=== PATIENT | male | born 1980 | race Caucasian/White ===

== ENCOUNTER 2020-01-02 15:14 | Emergency (ER) | payer MEDICAID ==
[~2020-01-02] VITALS: Ht 167.6 cm; Wt 68.2 kg
[2020-01-02] MEDS ORDERED: normal saline 1000ML IV soln IVB ONE (15:25)
[2020-01-02 16:03] LABS: BASOPHILS % (AUTO) 0.3 % (0-1); EOSINOPHILS % (AUTO) 0.6 % (0-6); HEMATOCRIT 43.5 % (42.0-52.0); HEMOGLOBIN 14.7 g/dl (14.0-17.9); LYMPHOCYTES # (AUTO) 1.7 X10'3 (1.1-4.8); MEAN CORPUSCULAR HEMOGLOBIN 29.4 PG (27.0-31.0); MEAN CORPUSCULAR HGB CONC 33.8 g/dL (33.0-36.5); MEAN CORPUSCULAR VOLUME 86.8 FL (78-98); MEAN PLATELET VOLUME 7.5 FL (7.4-10.4); MONOCYTES # (AUTO) 0.5 X10'3 (0-0.9); MONOCYTES % (AUTO) 6.1 % (2-12); NEUTROPHILS # (AUTO) 6.6 X10'3 (1.8-7.7); PLATELET COUNT 250 X10'3 (140-440); RED BLOOD COUNT 5.01 X10'6 (4.70-6.10); RED CELL DISTRIBUTION WIDTH 14.7 % (11.5-14.5); WHITE BLOOD COUNT 8.9 X10'3 (4.5-11.0)
[2020-01-02 16:16] LABS: PARTIAL THROMBOPLASTIN TIME 26 SECONDS (22-32)
[2020-01-02 16:19] LABS: ALANINE AMINOTRANSFERASE 25 U/L (12-78); ALBUMIN 3.7 G/DL (3.4-5.0); ALBUMIN/GLOBULIN RATIO 1.2 (1.1-1.5); ALKALINE PHOSPHATASE 62 IU/L (46-116); ANION GAP 12 (8-16); ASPARTATE AMINO TRANSFERASE 18 U/L (10-37); BILIRUBIN,TOTAL 0.4 MG/DL (0.1-1.0); BLOOD UREA NITROGEN 9 MG/DL (7-18); BUN/CREATININE RATIO 9.4 (5.4-32.0); CALCIUM 8.3 MG/DL (8.5-10.1); CHLORIDE 106 MMOL/L (99-107); CREATININE 0.96 MG/DL (0.60-1.10); GLUCOSE 100 MG/DL (70-104); POTASSIUM 3.9 MMOL/L (3.5-5.1); SODIUM 141 MMOL/L (135-145); TOTAL CARBON DIOXIDE 22.9 MMOL/L (24-32); TOTAL PROTEIN 6.7 G/DL (6.4-8.2); eGFR 87 ML/MIN
[2020-01-02 16:25] LABS: AMMONIA < 10 UMOL/L (11-32)
[2020-01-02 16:29] LABS: CREATINE KINASE 149 U/L (39-308); ETHANOL < 0.010 GM/DL (0.0-0.010); LACTIC SEPSIS 5.1 MMOL/L (0.4-2.0)
[2020-01-02] MEDS ORDERED: normal saline 1000ml 1,000 ML IV ONE (16:35)
[2020-01-02 17:08] LABS: CLARITY,URINE CLEAR (Clear); COLOR,URINE STRAW (Yellow); GLUCOSE, URINE NEGATIVE (Neg); KETONES,URINE NEGATIVE (Neg); LEUKOCYTE ESTERASE ,URINE NEGATIVE (Neg); NITRITES, URINE NEGATIVE (Neg); OCCULT BLOOD,URINE NEGATIVE (Neg); PH,URINE 5.5 (4.8-8.0); PROTEIN,URINE NEGATIVE (Neg); UROBILINOGEN,URINE 0.2 E.U/dL (0.2-1.0)
[2020-01-02 17:16] LABS: UA COLLECTION TYPE CLN CATCH MIDSTREAM
[2020-01-02 17:18] LABS: URINE AMPHETAMINE SCREEN NEGATIVE (Neg); URINE BARBITUATE SCREEN NEGATIVE (Neg); URINE BENZODIAZEPINES SCREEN NEGATIVE (Neg); URINE CANNABINOID SCREEN NEGATIVE (Neg); URINE COCAINE SCREEN NEGATIVE (Neg); URINE METHADONE SCREEN NEGATIVE (Neg); URINE OPIATE SCREEN NEGATIVE (Neg); URINE PHENCYCLIDINE SCREEN NEGATIVE (Neg)
[2020-01-02 18:54] VITALS: BP 105/63
== END 2020-01-02 18:50 | disposition home or self-care (01) ==
LOC: ER 15:15
DX: E86.0 Dehydration (principal); F32.9 Major depressive disorder, single episode, unspecified; R74.0 Nonspecific elevation of levels of transaminase and lactic acid dehydrogenase [LDH]; Z59.0 Homelessness
CPT/HCPCS: 36415; 70450; 71045; 80053; 80305; 80320; 81003; 82140; 82550; 83605; 84443; 85025; 85610; 85730; 93005; 96360; 96361; 99285; J7030

== ENCOUNTER 2021-10-16 11:29 | Emergency (ER) | payer MEDICAID ==
[~2021-10-16] VITALS: Ht 167.6 cm; Wt 65.9 kg
[2021-10-16 12:22] LABS: BASOPHILS % (AUTO) 0.6 % (0-1); EOSINOPHILS # (AUTO) 0.1 X10'3 (0-0.9); EOSINOPHILS % (AUTO) 1.1 % (0-6); HEMATOCRIT 45.7 % (42.0-52.0); HEMOGLOBIN 15.6 g/dl (14.0-17.9); LYMPHOCYTES # (AUTO) 2.2 X10'3 (1.1-4.8); LYMPHOCYTES % (AUTO) 32.3 % (21-51); MEAN CORPUSCULAR HEMOGLOBIN 29.4 PG (27.0-31.0); MEAN CORPUSCULAR HGB CONC 34.1 g/dL (33.0-36.5); MEAN CORPUSCULAR VOLUME 86.2 FL (78-98); MEAN PLATELET VOLUME 7.7 FL (7.4-10.4); MONOCYTES # (AUTO) 0.6 X10'3 (0-0.9); MONOCYTES % (AUTO) 8.2 % (2-12); NEUTROPHILS # (AUTO) 3.9 X10'3 (1.8-7.7); NEUTROPHILS % (AUTO) 57.8 % (42-75); PLATELET COUNT 304 X10'3 (140-440); RED CELL DISTRIBUTION WIDTH 14.1 % (11.5-14.5); WHITE BLOOD COUNT 6.8 X10'3 (4.5-11.0)
[2021-10-16 12:39] LABS: ALANINE AMINOTRANSFERASE 22 U/L (12-78); ALBUMIN 4.2 G/DL (3.4-5.0); ALBUMIN/GLOBULIN RATIO 1.3 (1.1-1.5); ALKALINE PHOSPHATASE 70 IU/L (46-116); ANION GAP 10 (8-16); ASPARTATE AMINO TRANSFERASE 17 U/L (10-37); BILIRUBIN,TOTAL 0.8 MG/DL (0.1-1.0); BLOOD UREA NITROGEN 15 MG/DL (7-18); CALCIUM 9.1 MG/DL (8.5-10.1); CHLORIDE 104 MMOL/L (99-107); CREATININE 0.79 MG/DL (0.60-1.10); GLUCOSE 104 MG/DL (70-104); POTASSIUM 3.8 MMOL/L (3.5-5.1); SODIUM 141 MMOL/L (135-145); TOTAL PROTEIN 7.5 G/DL (6.4-8.2); eGFR > 90 ML/MIN
[2021-10-16 12:47] LABS: ETHANOL < 0.010 GM/DL (0.0-0.010)
--- NOTE | 2021-10-16 16:40 | NUR ---
Patient ambulatory to and back. Patient states he is unable to give a urine sample at this time. Patient given water and will be given coffee when it is done being brewed. Continue to monitor.
--- NOTE | 2021-10-16 18:22 | NUR ---
Patient eating lunch. No distress observed. Continue to monitor.
--- NOTE | 2021-10-16 19:05 | NUR ---
patient feed self independently. resting comfortably in bed not in physical nor respiratory distress.
--- NOTE | 2021-10-16 20:45 | NUR ---
patient is sleeping.
[2021-10-17 05:46] VITALS: BP 110/70
--- NOTE | 2021-10-17 05:58 | NUR ---
Patient walks to the bathroom independently. Urine sample was collected and sent to lab.
[2021-10-17 06:10] LABS: CLARITY,URINE CLEAR (Clear); COLOR,URINE YELLOW (Yellow); GLUCOSE, URINE NEGATIVE (Neg); KETONES,URINE NEGATIVE (Neg); LEUKOCYTE ESTERASE ,URINE NEGATIVE (Neg); NITRITES, URINE NEGATIVE (Neg); OCCULT BLOOD,URINE NEGATIVE (Neg); PROTEIN,URINE NEGATIVE (Neg); UROBILINOGEN,URINE 0.2 E.U/dL (0.2-1.0)
[2021-10-17 06:13] LABS: URINE AMPHETAMINE SCREEN NEGATIVE (Neg); URINE BARBITUATE SCREEN NEGATIVE (Neg); URINE BENZODIAZEPINES SCREEN NEGATIVE (Neg); URINE CANNABINOID SCREEN NEGATIVE (Neg); URINE COCAINE SCREEN NEGATIVE (Neg); URINE METHADONE SCREEN NEGATIVE (Neg); URINE OPIATE SCREEN NEGATIVE (Neg); URINE PHENCYCLIDINE SCREEN NEGATIVE (Neg)
[2021-10-17 06:22] LABS: UA COLLECTION TYPE NON-SPECIFIED
--- NOTE | 2021-10-17 06:22 | NUR ---
Report received. Patietn is sleeping with normal resting breathing pattern. Skin color WNL.
--- NOTE | 2021-10-17 08:07 | NUR ---
Patient remains sleeping at this time with normal breathing patterns.
--- NOTE | 2021-10-17 08:08 | NUR ---
[facility] calls requesting patient's packet be sent. Tech is informed and will send.
--- NOTE | 2021-10-17 09:10 | NUR ---
PATIENT RECEIVED SLEEPING IN BED. HE AWOKE TO EAT BREAKFAST WITH NO S/S OF DISTRESS. WILL CONTINUE TO MONITOR.
--- NOTE | 2021-10-17 10:24 | NUR ---
PACKET FAXED TO [facility]
--- NOTE | 2021-10-17 11:00 | NUR ---
PATIENT CONTINUES SLEEPING IN BED THROUGHOUT THE MORNING. NO COMPLAINTS OR CHANGES NOTED.
[2021-10-17] MEDS ORDERED: NO HOME MEDS (12:58)
--- NOTE | 2021-10-17 13:00 | NUR ---
PATIENT OBSERVED EATING LUNCH IN HIS ROOM AT THIS TIME. HE WAS AMBULATORY TO THE RESTROOM WITH A STEADY GAIT BEFORE RETREATING BACK TO BED. NO APPARENT DISTRESS OR COMPLAINTS AT THIS TIME.
--- NOTE | 2021-10-17 15:10 | NUR ---
PATIENT OBSERVED SLEEPING AT THIS TIME. NO S/S OF DISTRESS. RESPIRATIONS EVEN, UNLABORED.
--- NOTE | 2021-10-17 16:19 | NUR ---
PATIENT IS BEING EVALUATED BY [facility] AT THIS TIME
== END 2021-10-17 16:45 ==
LOC: ER 11:30
DX: R45.851 Suicidal ideations (principal); F32.9 Major depressive disorder, single episode, unspecified; Z20.822 Contact with and (suspected) exposure to COVID-19; R44.0 Auditory hallucinations; Z59.00 Homelessness unspecified; Z79.899 Other long term (current) drug therapy
CPT/HCPCS: 36415; 80053; 80305; 80320; 81003; 84443; 85025; 87635; 99285; C9803